=== PATIENT | male | born 1960 | race Two or more races ===

== ENCOUNTER 2017-10-19 05:06 | Day surgery (SDC) | payer OTHER ==
[2017-10-19] MEDS ORDERED: ceFAZolin 2 GM/SWFI 2 GM/20 ML SYR IVP ONE (05:37)
[2017-10-19] MEDS ORDERED: ACETAMINOPHEN 500 MG TAB PO ONE (05:37)
[2017-10-19] MEDS ORDERED: GABAPENTIN 300 MG CAP PO ONE (05:37)
[2017-10-19] MEDS ORDERED: LR 1,000 ML IV ONE (05:38)
[2017-10-19] MEDS ORDERED: LIDOCAINE 1% 2 ML INJ ID PRN (05:38)
[2017-10-19] MEDS ORDERED: BUPIVACAINE 0.25% 30 ML SDV ONE (06:49)
[2017-10-19] MEDS ORDERED: THROMBIN (BOVINE) 20,000 UNIT VIAL TP ONE (06:50)
[2017-10-19] MEDS ORDERED: BACITRACIN 50,000 UNITS/10 ML SYR IRR ONE (06:50)
[2017-10-19] MEDS ORDERED: CHLORHEXIDINE GLUC HIBICLENS 118 ML BTL TP ONE (06:50)
[2017-10-19] MEDS ORDERED: PROPOFOL/EMULSION 500 MG/50 ML BOTTLE IV ONE (06:56)
[2017-10-19] MEDS ORDERED: fentaNYL 250 MCG/5 ML INJ ONE (06:59)
[2017-10-19] MEDS ORDERED: MIDAZOLAM 2 MG/2 ML VIAL ONE (07:06)
[2017-10-19] MEDS ORDERED: MIDAZOLAM 2 MG/2 ML VIAL IVP ONE (07:08)
--- NOTE | 2017-10-19 07:08 | PDHPUP ---
History & Physical Update H&P update statement: This history and physical update is based on an assessment of the patient which was completed after admission or registration (within 24 hours), but prior to the surgery/procedure. H&P update: H&P reviewed & patient examined, no change in patient's condition since H&P completed (Consents signed and site marked. All questions answered.)
--- NOTE | 2017-10-19 07:12 | PDANEPAE ---
ANE History of Present Illness 56 year old male for lumbar 4-5 microdisc. DM, Obese. ANE Past Medical History - Cardiovascular History Hx Hypertension: No Hx Arrhythmias: No Hx Chest Pain: No Hx Coronary Artery / Peripheral Vascular Disease: No Hx CHF / Valvular Disease: No Hx Palpitations: No Cardiovascular History Comment: SINUS GAIL - Pulmonary History Hx COPD: No Hx Asthma/Reactive Airway Disease: No Hx Recent Upper Respiratory Infection: No Hx Oxygen in Use at Home: No Hx Sleep Apnea: Yes Sleep Apnea Screening Result - Last Documented: Positive Pulmonary History Comment: LEEANNA USES C-PAP INSTRUCTED TO BRING DOS - Neurologic History Hx Cerebrovascular Accident: No Hx Seizures: No Hx Dementia: No - Endocrine History Hx Diabetes: Yes Endocrine History Comment: NIDDM - Renal History Hx Renal Disorders: No - Liver History Hx Hepatic Disorders: No - Neurological & Psychiatric Hx Hx Neurological and Psychiatric Disorders: Yes Neurological / Psychiatric History Comment: N/T DOWN INTO RT LEG - Cancer History Hx Cancer: No - Congenital Disorder History Hx Congenital Disorders: No - GI History Hx Gastrointestinal Disorders: No - Other Health History Other Health History: 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 ILIAC MUSCLE INFECTION 12/2016 - Chronic Pain History Chronic Pain: Yes (LOWER BACK N/T RT LEG) - Surgical History Prior Surgeries: RT ING HERNIA. LAMINECTOMY. APPENDECTOMY. JOCELIN CATARACT ANE Review of Systems Review of Systems: - Exercise capacity METS (RN): 4 METS ANE Patient History - Allergies Allergies/Adverse Reactions: No Known Drug Allergies Allergy (Verified 10/02/17 14:43) - Home Medications Home Medications: Diclofenac 0.1% PO PRN 10/03/17 [Last Taken 10/05/17] Gabapentin DAILY AT 6PM 10/03/17 [Last Taken 10/18/17] Ibuprofen PRN 10/03/17 [Last Taken 10/17/17] Victoza 3-Dhruv DAILY AT 6PM 10/03/17 [Last Taken 10/17/17] - NPO status NPO Since - Liquids (Date): 10/18/17 NPO Since - Liquids (Time): 20:00 NPO Since - Solids (Date): 10/18/17 NPO Since - Solids (Time): 20:00 - Smoking Hx Smoking Status: Former smoker ANE Labs/Vital Signs - Vital Signs Blood Pressure: 112/78 Heart Rate: 62 Respiratory Rate: 16 O2 Sat (%): 93 Height: 177.8 cm Weight: 120.202 kg ANE Physical Exam - Airway Neck exam: FROM Mallampati Score: Class 3 Mouth exam: normal dental/mouth exam - Pulmonary Pulmonary: no respiratory distress - Cardiovascular Cardiovascular: regular rate and rhythym - ASA Status ASA Status: III ANE Anesthesia Plan Anesthesia Plan: general endotracheal anesthesia (glide scope for difficult airway)
[2017-10-19] MEDS ORDERED: oxyCODONE IR 5 MG TAB PO PRN ×2 (08:12→09:38)
[2017-10-19] MEDS ORDERED: LABETALOL HCL 5 MG/ML 20 ML MDV IVP PRN (08:12)
[2017-10-19] MEDS ORDERED: PROMETHAZINE HCL 25 MG/ML INJ IVP PRN (08:12)
[2017-10-19] MEDS ORDERED: MEPERIDINE 25 MG/ML SYR IVP PRN (08:12)
[2017-10-19] MEDS ORDERED: DEXAMETHASONE 4 MG/ML VIAL IVP PRN (08:12)
[2017-10-19] MEDS ORDERED: NALOXONE HCL 0.4 MG/ML INJ IVP PRN (08:12)
[2017-10-19] MEDS ORDERED: LR 500 ML IV PRN (08:12)
[2017-10-19] MEDS ORDERED: fentaNYL 100 MCG/2 ML INJ IVP PRN (08:12)
[2017-10-19] MEDS ORDERED: PHENYLEPHRINE HCL 100 MCG/ML SYR IVP PRN (08:12)
[2017-10-19] MEDS ORDERED: ALBUTEROL 3 ML DEYVIAL IH PRN (08:12)
[2017-10-19] MEDS ORDERED: ONDANSETRON 4 MG/2 ML VIAL IVP PRN ×2 (08:12→09:38)
[2017-10-19] MEDS ORDERED: METOCLOPRAMIDE 10 MG/2 ML VIAL IVP PRN (08:12)
[2017-10-19] MEDS ORDERED: PROPOFOL 200 MG/20 ML VIAL ONE (08:47)
[2017-10-19] MEDS ORDERED: LACTULOSE 20 GM/30 ML UDCUP PO PRN (09:38)
[2017-10-19] MEDS ORDERED: MAGNESIUM HYDROXIDE 30 ML UDCUP PO PRN (09:38)
[2017-10-19] MEDS ORDERED: ONDANSETRON DISINTEGRATING 4 MG TAB PO PRN (09:38)
[2017-10-19] MEDS ORDERED: METHOCARBAMOL 750 MG TAB PO PRN (09:38)
[2017-10-19] MEDS ORDERED: BISACODYL 10 MG SUPP PR PRN (09:38)
[2017-10-19] MEDS ORDERED: diphenhydrAMINE 25 MG CAP PO PRN (09:38)
[2017-10-19] MEDS ORDERED: POLYETHYLENE GLYCOL 3350 17 GM PKT PO PRN (09:38)
[2017-10-19] MEDS ORDERED: HYDROmorphONE/DILAUDID 1 MG/ML INJ IVP PRN (09:38)
--- NOTE | 2017-10-19 09:53 | POSTOPPROG ---
Post Op Note Date of Operation: 10/19/17 Surgeon: Sly Zepeda Set Up Operator Tool: Anyi Jang PA-C Anesthesiologist: Demetrius Anesthesia: GET(General Endotracheal) Pre-op Diagnosis: lumbar radiculopathy, stenosis Post-op Diagnosis: same Indication: nerve compression, pain Procedure: right L45 microdiscectom/LRD, right L5/S1 foraminotomy Findings: Please see dictation Inf/Abcess present in the surg proc area at time of surgery?: No Depth: Organ Space EBL: Minimal Complications: none Specimen(s): none PA Addendum - Addendum .: S: Pt awake in PACU, denies pain. No numbness/tingling. O: AAOx3 NAD VSS MAEx4 Motor 5/5 BUE & BLE Incision dressed cdi +LT A: 57 yo M s/p right L45 microdiscectomy/LRD, right L5/S1 foraminotomy P: Pain management Advance diet Spine precautions DC to home from PACU once criteria met Follow up in 2-3 weeks Call NS with any issues D/w Dr Zepeda
[2017-10-19] MEDS ORDERED: HYDROmorphONE/DILAUDID 2 MG/ML INJ IVP PRN (10:03)
[2017-10-19] MEDS ORDERED: HYDROmorphONE/DILAUDID 2 MG/ML INJ ONE (10:22)
[2017-10-19] MEDS ORDERED: oxyCODONE IR 5 MG TAB ONE (10:34)
--- NOTE | 2017-10-19 11:09 | POSTANESTH ---
Post Anesthetic Evaluation Cardiovascular Status: Normal, Stable Respiratory Status: Normal, Stable Level of Consciousness/Mental Status: Can Participate in Eval Pain Control: Adequate, Prn Tx Ordered Nausea/Vomiting Control: Adequate, Prn Tx Ordered
[2017-10-19 11:49] VITALS: BP 118/71
--- NOTE | 2017-10-19 14:30 | GOP ---
[f rep st] OPERATIVE REPORT DATE OF OPERATION: 10/19/2017 SURGEON: Sly Zepeda MD NEUROSURGEON: Sly Zepeda MD COREMAKER: Jeannette Jang, NOAH. ANESTHESIA: General. PREOPERATIVE DIAGNOSIS: 1. Right sided L4-L5 herniated nucleus pulposus 2. Right-sided L5-S1 lateral recess and foraminal stenosis. 3. Right lower extremity radiculopathy. POSTOPERATIVE DIAGNOSIS: 1. Right sided L4-L5 herniated nucleus pulposus 2. Right-sided L5-S1 lateral recess and foraminal stenosis. 3. Right lower extremity radiculopathy. PROCEDURE PERFORMED: 1. Right L4-L5 hemilaminotomy, medial facetectomy, lateral recess decompression and microdiskectomy with nerve root decompression. 2. Right-sided L5-S1 hemilaminotomy, lateral recess decompression with foraminotomy and nerve root decompression. 3. Use of intraoperative fluoroscopy, less than 1 hour physician time. 4. Use of neuromonitoring. 5. Use of the operating microscope. FINDINGS: per imaging with a large free fragment of disc material at L4-L5 SPECIMENS: None. ESTIMATED BLOOD LOSS: 30 mL. INDICATIONS: The patient is a 57-year-old gentleman who had undergone prior decompression on the left side at L5-S1 for which he did quite well for several years. He presented with right lower extremity radiculopathy. Imaging demonstrated a right-sided L4-5 disk herniation with right L5-S1 lateral recess and foraminal stenosis. After discussion of risks, benefits, and treatment alternatives, we decided to proceed forth with surgery as described above. DESCRIPTION OF PROCEDURE: Patient was brought to the operating theater and underwent general endotracheal anesthesia without complications. He had Venodynes, SONAL hose and the appropriate lines placed by Anesthesia. He was flipped prone onto the Pedro frame, and all bony processes inspected and padded. The lower lumbar region was prepped and draped in the usual sterile surgical fashion. A time-out was completed per protocol. The patient received antibiotics within 1 hour of incision. Using lateral fluoroscopy and spinal needle, we picked our entry point at the L4 through S1 levels. This was marked in the midline and incorporated his prior lumbar incision. The incision was infiltrated with Marcaine with epinephrine and taken down with the scalpel blade. Using monopolar, the incision was then taken down on the right side through the subfascial space and a subperiosteal dissection carried out to the right side of the L4-L5 and L5-S1 interlaminar spaces. Deep retractors were placed to maintain our exposure. We again confirmed our level using lateral fluoroscopy. The microscope was brought into the field to assist with microscopic dissection and to maintain illumination and magnification. We first moved up to L4-5 where we completed a right-sided L4-5 hemilaminotomy defect. We completed a resection of the medial facet joint and completed a lateral recess decompression with the Kerrison punches. We resected the ligamentum flavum. We then retracted the thecal sac medially. We incised the disk space and pulled out a very large free fragment of disk material causing nerve root compression. Once we felt that the area was well decompressed to manual palpation, we obtained hemostasis. We then moved down to the L5-S1 level where we used bur tip on the drill bit and Kerrison punches to complete a right-sided L5-S1 hemilaminotomy with mesial facetectomy to complete the foraminotomy. I was able to visualize the nerve root quite well. It did appear to be quite compressed between the 2 pedicles. I tried my best to complete a decompression with the banana Kerrison until we felt that everything was well decompressed on manual palpation. At this point, we obtained hemostasis with the bipolar. The wound was irrigated copiously with bacitracin irrigation. The wound was then closed in multiple layers using Vicryl sutures for deep layers and Dermabond for the skin. The patient's wounds were dressed sterilely. He was flipped supine onto the transfer cart, where he was awakened, extubated, taken to the recovery room in stable condition. There were no complications and no noted changes on neuromonitoring throughout the procedure. COMPLICATIONS: None. /[id number]/MODL MTDD
[2017-10-19] MEDS ORDERED: FAMOTIDINE 20 MG TAB PO SCH (21:00)
[2017-10-19] MEDS ORDERED: SENNOSIDES/DOCUSATE SODIUM TAB PO SCH (21:00)
== END 2017-10-19 11:45 | disposition home or self-care (01) ==
LOC: FSGY 05:06
PROVIDERS: ATTEND Neurological Surgery
DX: M51.16 Intervertebral disc disorders with radiculopathy, lumbar region (principal); M48.061 Spinal stenosis, lumbar region without neurogenic claudication; E11.9 Type 2 diabetes mellitus without complications; Z87.891 Personal history of nicotine dependence
CPT/HCPCS: J0171; J0690; J1170; J2250; J2704; J3010